=== PATIENT | male | born 1995 | race Caucasian/White ===

== ENCOUNTER 2019-03-23 08:56 | Emergency (ER) | payer BC ==
[~2019-03-23] VITALS: Ht 180.3 cm; Wt 77.1 kg
[2019-03-23] MEDS ORDERED: WELLBUTRIN SR150 M1 PO (09:04)
[2019-03-23 09:11] VITALS: BP 132/74
--- NOTE | 2019-03-23 09:14 | NUR ---
ED Nurse Note: knee injury after dancing on 02/14. ERMD at bedside awaiting orders.
[2019-03-23] MEDS ORDERED: HYDROcodone/Acetamin 5/325 tab ORAL ONE (09:15)
--- NOTE | 2019-03-23 09:20 | Emergency Room Report ---
History of Present Illness General Chief Complaint: Pain Source: Patient Present Illness HPI The patient injured his right leg breakdancing on March 17. There is been swelling and bruising. He has been trying anti-inflammatories with ketoprofen. He last took a dose at 6 AM. There is still swelling and pain that radiates from the anterior tibia to the medial side of the knee. He rates the pain 10/ 10. There are also abrasions on the skin. He is been able to ambulate on the leg. Denies numbness. No calf tenderness. 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 Nursing Documentation: PMH: Agreed; PSxH: Agreed Nursing Documentation-PMH Past Medical History: No Stated History Review of Systems Constitutional: Denies: fever Cardiovascular: Denies: chest pain Musculoskeletal: Reports: see HPI Skin: Reports: see HPI Neurological: Reports: see HPI Hematologic/Lymphatic: Reports: see HPI Physical Exam Vital Signs Date Time Temp Pulse Resp B/P (MAP) Pulse Ox O2 Delivery O2 Flow Rate FiO2 03/23/19 08:59 98.4 60 16 132/74 (93) 97 Room Air Sp02 EP Interpretation: reviewed, normal General Appearance: well appearing, no apparent distress, GCS 15 Head: normocephalic Eyes: bilateral eye normal inspection, bilateral eye PERRL ENT: moist mucus membranes Neck: full range of motion Respiratory: speaking full sentences Cardiovascular #1: regular rate, rhythm Cardiovascular #2: 2+ dorsalis pedis (R) Gastrointestinal: normal inspection Musculoskeletal: decreased range of mation, swelling, other - Negative drawer Apley's compression. Lateral medial ligaments are stable., tenderness - Tibial tuberosity tibial tuberosity Neurologic: alert, distal neuro normal Psychiatric: mood/affect normal Skin: other - Ecchymoses anterior tibial spine extending to ankle, abrasions Medical Decision Making Diagnostic Impression: Primary Impression: Knee sprain Qualified Codes: S83.8X1A - Sprain of other specified parts of right knee, initial encounter ER Course Presents with injury to his knee and proximal tibia from the third. Differential includes fracture, contusion, sprain and hematoma. By exam fracture of the tibial tuberosity is highly suspected. X-rays of the knee and tib-fib are indicated. He recently took a dose of his anti-inflammatory and therefore [place] will be given. As he is 23 and grew up in the [place] his last tetanus was most likely he was 15 years old. No fx. Immobilizer was applied by nursing staff. Position and tension checked by me. Distal neurovascular exam normal. Improved pain. Discussed the need for follow-up with biologics specialist. Patient stable for outpatient observation and treatment. Other X-Ray Diagnostic Results Other X-Ray Diagnostic Results #1: X-Ray ordered: Right knee # of Views/Limited Vs Complete: 3 View Indication: Other EP Interpretation: Yes Interpretation: no dislocation, no fractures, other - Anterior tibial tuberosity swelling Impression: Other Electronically Signed by: Electronically signed by Rhett Bonilla MD Other X-Ray Diagnostic Results #2: X-Ray ordered: Right tib-fib # of Views/Limited Vs Complete: 2 View Indication: Other EP Interpretation: Yes Interpretation: no dislocation, no fractures, other - Soft tissue swelling tibial tuberosity Impression: Other Electronically Signed by: Electronically signed by Rhett Bonilla MD Last Vital Signs Date Time Temp Pulse Resp B/P (MAP) Pulse Ox O2 Delivery O2 Flow Rate FiO2 03/23/19 10:57 98.4 89 16 128/74 97 Room Air Status: improved Disposition: HOME, SELF-CARE Condition: Improved Scripts Hydrocodone Bit/Acetaminophen 5-325* (NORCO 5-325*) 1 Each Tablet 1 TAB ORAL Q6H PRN for For Pain, #10 TAB 0 Refills Prov: Rhett Bonilla MD 03/23/19 Rhett Bonilla MD Mar 23, 2019 09:19
[2019-03-23] MEDS ORDERED: Neosporin Oint Ud Pkt TOPIC ONE (09:30)
--- NOTE | 2019-03-23 10:05 | NUR ---
ED Nurse Note: imaging done . meds well tolerated knee immobilizer applied.
[2019-03-23] MEDS ORDERED: NORCO 5-325 TA1 EACH ORAL (10:36)
--- NOTE | 2019-03-23 10:56 | NUR ---
ER DISCHARGE NOTE: Patient is cleared to be discharged per ERMD, pt is aox4, on room air, with stable vital signs. pt was given dc and prescription instructions, pt was able to verbalize understanding, pt id band removed without complications. pt is able to ambulate with steady gait. pt took all belongings.
[2019-03-23 10:57] VITALS: BP 128/74
--- NOTE | 2019-03-23 11:31 | Diagnostic Imaging Report ---
Indication: Pain status post injury Technique: 3 views of the right knee Comparison: None Findings: Bone mineralization within normal limits. There is no evidence of acute fracture or dislocation. No suprapatellar joint effusion. No radiopaque foreign body. Impression: No evidence of acute fracture or dislocation.
== END 2019-03-23 11:00 | disposition home or self-care (01) ==
LOC: EMR 09:32
DX: S83.91XA Sprain of unspecified site of right knee, initial encounter (principal); Y93.41 Activity, dancing; Y92.89 Other specified places as the place of occurrence of the external cause; F17.200 Nicotine dependence, unspecified, uncomplicated
CPT/HCPCS: 99283